=== PATIENT | female | born 1995 | race Two or more races ===

== ENCOUNTER 2025-04-11 10:14 | Emergency (ER) | payer MEDICAID, OTHER ==
[~2025-04-11] VITALS: Ht 165.1 cm; Wt 75.6 kg
[2025-04-11 10:16] VITALS: BP 115/70; TEMP 98.2
[2025-04-11 10:25] VITALS: PULSE 76
--- NOTE | 2025-04-11 10:27 | ECG ---
[facility] Test Date: 2025-04-11 Test Time: 10:25:24 Pat Name: SOPHIE TRIPATHI Department: ED Room: Gender: F Medical Bill Processor: DEREK : 1995 Requested By: SCOTT LI Order Number: [id number] Reading MD: Garrett Nicole Measurements Intervals Benge Rate: 76 P: 60 AL: 121 QRS: 98 QRSD: 93 T: 26 QT: 382 QTc: 430 Interpretive Statements Sinus rhythm Borderline right axis deviation Electronically Signed On 04-12-2025 17:02:42 PDT by Garrett Nicole Please click the below link to view image of tracing.
[2025-04-11] MEDS: SODIUM CHLORIDE 0.9% 1,000 ML IV ONE (10:30)
--- NOTE | 2025-04-11 10:42 | ED.PDOC ---
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 Pt states she is 7 weeks , , and states she woke up this AM with dizziness described as lightheadedness, burning chest pain, nausea and felt like she was going to "black out." Pt states she checked her 02 sat and states it was at 75% with a heart rate of 57. Patient notes her heart rate is usually fast, and rarely as low as the 50s. Patient states due to history of asthma, she decided to use her inhaler. Pt states she felt less short of breath afterwards and came to the ED for further evaluation. Pt states she was having burning chest pain episode earlier this AM but states it has since been alleviated prior to ED arrival. Pt now in the ED, otherwise denies any other symptoms. 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 Pt is followed by a shale planer operator at [place]. Pt otherwise denies any past symptoms with prior and denies any past complications. No current abdominal pain, vaginal bleeding or abnormal vaginal discharge. Pt has noted stable vitals with temp of 98.2 F, heart rate of 86, RR 16 and BP of 115/70 and 02 sat of 98% on room air. Pt states her first OB appt is next week. Pt denies any other symptoms at this time. Chief Complaint: Dizziness Time Seen by MD: 10:35 Reviewed Notes: Medications, Allergies Information Source: Patient Mode of Arrival: Ambulatory Past Medical History PAST MEDICAL HISTORY: Asthma Past Medical History (Other): Cor triatriatum Surgical History (Other): Cardiac ablation SHIP'S COOK History: Denies all SHIP'S COOK Hx Family History Family History: Reviewed,noncontributory to illness Social History Smoker: Non-Smoker Alcohol: Denies ETOH Use Drugs: Denies Drug Use Constitutional: denies: chills, diaphoresis, fatigue, fever, malaise, sweats, weakness, others EENTM: denies: blurred vision, double vision, ear bleeding, ear discharge, ear drainage, ear pain, ear ringing, eye pain, eye redness, hearing loss, mouth pain, mouth swelling, nasal discharge, nose bleeding, nose congestion, nose pain, photophobia, tearing, throat pain, throat swelling, voice changes, others Respiratory: denies: cough, hemoptysis, orthopnea, SOB at rest, shortness of breath, SOB with excertion, stridor, wheezing, others Cardiovascular: reports: chest pain; denies: dizzy spells, diaphoresis, Dyspnea on exertion, edema, irregular heart beat, left arm pain, lightheadedness, palpitations, PND, syncope, others Gastrointestinal: reports: nausea; denies: abdomen distended, abdominal pain, blood streaked bowels, constipated, diarrhea, dysphagia, difficulty swallowing, hematemesis, melena, poor appetite, poor fluid intake, rectal bleeding, rectal pain, vomiting, others Genitourinary: denies: abnormal vagina bleeding, burning, dyspareunia, dysuria, flank pain, frequency, hematuria, incontinence, pain, , vagina discharge, urgency, others Neurological: reports: dizziness; denies: fainting, headache, left sided numbness, left sided weakness, numbness, paresthesia, pre-existing deficit, right sided numbness, right sided weakness, seizure, speech problems, tingling, tremors, weakness, others Musculoskeletal: denies: back pain, gout, joint pain, joint swelling, muscle pain, muscle stiffness, neck pain, others Integumetry: denies: bruises, change in color, change in hair/nails, dryness, laceration, lesions, lumps, rash, wounds, others Allergic/Immunocompromised: denies: Difficulty Healing, Frequent Infections, Hives, Itching, others Hematologic/Lymphatic: denies: anemia, blood clots, easy bleeding, easy bruising, swollen glands, others Endocrine: denies: excessive hunger, excessive sweating, excessive thirst, excessive urination, flushing, intolerance to cold, intolerance to heat, unexplained weight gain, unexplained weight loss, others Psychiatric: denies: anxiety, bipolar disorder, depression, hopeless, panic disorder, schizophrenia, sleepless, suicidal, others All Other Systems: Reviewed and Negative Physical Exam General Appearance: No Apparent Distress, Obese HEENT: Other (Pupils and face symmetric. Moist mucous membranes.) Neck: Full Range of Motion, Normal Inspection Respiratory: Lungs Clear, No Accessory Muscle Use, No Respiratory Distress, Normal Breath Sounds Cardiovascular: No Edema, No JVD, Regular Rate/Rhythm Breast Exam: Deferred Gastrointestinal: Non Tender, Soft Genitalia: Deferred Pelvic: Deferred Rectal: Deferred Extremities: No calf tenderness, Normal inspection, Normal range of motion, Non-tender, No pedal edema Neurologic: Alert (Oriented x4), Normal Affect, Normal Mood, Other (Ambulatory) Cerebellar Function: NOT DONE Reflexes: NOT DONE Skin: Dry, Normal Color, Warm Lymphatic: NOT DONE EKG EKG : Comments Sinus rhythm, rate 76, normal intervals, borderline right axis deviation, normal QRS, nonspecific T change. Was a procedure done? Was a procedure done?: No Differential Diagnosis (SZ) General Weakness: Anemia, Dehydration, Electrolyte imbalance, Hypoglycemia, Hypotension, Pulmonary embolus, Vertigo: central, Vertigo: peripheral, Other (UTI, current , orthostasis, cardiac arrhythmia such as rapid or slow AFib, among others) X-Ray, Labs, Meds, VS Vital Signs Date Time Temp Pulse Resp B/P (MAP) Pulse Ox O2 Delivery O2 Flow Rate FiO2 04/11/25 10:48 20 99 Room Air* 0 21 04/11/25 10:25 76 04/11/25 10:16 98.2 86 16 115/70 98 98.2 Lab Test 04/11/25 11:24 04/11/25 10:36 04/11/25 10:25 Range/Units Troponin I High Sensitivity < 3 L < 3 L </=34 ng/L White Blood Count 8.2 4.4-10.8 10^3/uL Red Blood Count 5.12 4.0-5.20 10^6/uL Hemoglobin 14.2 12.2-16.2 g/dL Hematocrit 41.8 36.0-46.0 % Mean Corpuscular Volume 81.6 80.0-100.0 fL Mean Corpuscular Hemoglobin 27.7 L 28.0-32.0 pg Mean Corpuscular Hemoglobin Concent 33.9 32.0-36.0 g/dL Red Cell Distribution Width 18.3 H 11.8-14.3 % Platelet Count 306 140-450 10^3/uL Mean Platelet Volume 8.0 6.9-10.8 fL Neutrophils (%) (Auto) 74.1 37.0-80.0 % Lymphocytes (%) (Auto) 18.3 10.0-50.0 % Monocytes (%) (Auto) 6.6 0.0-12.0 % Eosinophils (%) (Auto) 0.9 0.0-7.0 % Basophils (%) (Auto) 0.1 0.0-2.0 % Neutrophils # (Auto) 6.1 1.6-8.6 10 ^3/uL Lymphocytes # (Auto) 1.5 0.4-5.4 10 ^3/uL Monocytes # (Auto) 0.5 0-1.3 10 ^3/uL Eosinophils # (Auto) 0.1 0-0.8 10 ^3/uL Basophils # (Auto) 0 0-0.2 10 ^3/uL Nucleated Red Blood Cells 0.0 % Prothrombin Time 10.5 9.3-11.8 sec Prothrombin Time INR 0.99 0.9-1.15 Activated Partial Thromboplast Time 27.7 24.5-34.5 SEC D-Dimer, Quantitative 0.20 0.0-0.49 mg/L FEU Sodium Level 135 L 136-145 mmol/L Potassium Level 4.1 3.5-5.1 mmol/L Chloride Level 102 98-107 mmol/L Carbon Dioxide Level 24 20-31 mmol/L Anion Gap 9 5-15 Blood Urea Nitrogen 8 L 9-23 mg/dL Creatinine 0.68 0.550-1.02 mg/dL Glomerular Filtration Rate Calc 122 >90 mL/min BUN/Creatinine Ratio 11.8 10.0-20.0 Serum Glucose 88 74-106 mg/dL Calcium Level 9.6 8.7-10.4 mg/dL B-Type Natriuretic Peptide 8.66 0-100 pg/mL Beta HCG, Quantitative 49875.9 H 1.5-4.2 mIU/mL POC Glucose 95 70-106 mg/dl Current Medications Medications (Trade) Dose Ordered Sig/[place] Route Start Time Stop Time Status Last Admin Sodium Chloride 1,000 ml @ 1,000 mls/hr Q1H ONCE IV 04/11/25 10:30 04/11/25 11:29 DC 04/11/25 10:30 Albuterol (Ventolin Medneb) 5 mg ONCE ONCE NEB 04/11/25 10:45 04/11/25 10:46 DC 04/11/25 10:47 Ipratropium [place] (Atrovent Medneb) 0.5 mg ONCE ONCE NEB 04/11/25 10:45 9/3/25 10:46 DC 04/11/25 10:48 Acetaminophen (Tylenol Tablet Or Capsule) 1,000 mg ONCE ONCE PO 04/11/25 10:45 04/11/25 10:46 DC 04/11/25 11:[address] [address] Ph: [phone] DIAGNOSTIC IMAGING Diagnostic Imaging Report : [id number] Signed PATIENT: SOPHIE TRIPATHI ACCT: [id number] UNIT: [id number] : 1995 LOC: ER ROOM / BED: / AGE / SEX: 29 / F ADM STATUS: REG ER SERVICE 1023 ORDERING PHYSICIAN: SCOTT THOMPSON MD PROCEDURE(s): CXRP - CHEST PORTABLE REASON: dizzy, 7 wk preg ORDER NUMBER(s): [id number], ACCESSION NUMBER(s): [id number] EXAM: XY CHEST PORTABLE Indication: pain Technique: Single frontal view of the chest was obtained Comparison: None FINDINGS: Lines and Tubes: None Lungs: No focal consolidation. Pleura: No effusion. No pneumothorax. Cardiomediastinal contours: Unremarkable Bones: No acute osseous abnormality. IMPRESSION: No acute cardiopulmonary disease. 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 Vitals unremarkable here Exam unremarkable Rhythm strip independently interpreted by me: Sinus rhythm, rate 76, no ectopy. Chest x-ray unremarkable CBC unremarkable, basic metabolic panel remarkable for sodium 135, BNP and 2 serial troponins negative, coag panel normal and D-dimer negative, hCG 64105.9, UA pending Patient treated with the following in the ED: 1 L 0.9 normal saline IV bolus, albuterol 5 mg/Atrovent 0.5 mg nebulized, Tylenol 1 g p.o. Prior to my ability to re-evaluate the patient, she decided to leave against medical advice. I was not advised until after the patient had left the ED. Time of 1ST Reevaluation: 12:03 Reevaluation 1ST: Improved Patient Education/Counseling: Treatment Family Education/Counseling: No Family Present Departure 1 Departure Time of Disposition: 12:03 Impression: Primary Impression: Pre-syncope Additional Impressions: Chest pain Qualified Codes: R07.9 - Chest pain, unspecified Shortness of breath Disposition: LEFT AGAINST MEDICAL ADVICE Condition: Fair Critical Care Note Critical Care Time?: No Stability Stability form required: No Heart Score Heart Score: Heart Score Response (Comments) Value History Slightly Suspicious 0 EKG Normal 0 Age <45 0 Risk Factors 1 or 2 risk factors 1 Troponin Normal limit 0 Total 1 I personally scribed for SCOTT THOMPSON MD ([email or web address]) on 04/11/25 at 10:42. Electronically submitted by Brianne Singh ([email or web address]). I personally scribed for SCOTT THOMPSON MD ([email or web address]) on 04/11/25 at 11:27. Electronically submitted by Brianne Singh ([facility] [place]). SCOTT THOMPSON MD Apr 11, 2025 10:42
[2025-04-11] MEDS: ALBUTEROL SULF 2.5 MG/0.5ML(0.5%) NEB SOLN NEB ONE (10:47)
[2025-04-11 10:48] VITALS: RESP 20; O2SAT 99
[2025-04-11] MEDS: IPRATROPIUM BROM 0.5 MG/2.5ML INH SOL NEB ONE (10:48)
[2025-04-11 10:57] LABS: Hematocrit 41.8 % (36.0-46.0); Hemoglobin 14.2 g/dL (12.2-16.2); Mean Corpuscular Hemoglobin 27.7 pg (28.0-32.0); Mean Corpuscular Volume 81.6 fL (80.0-100.0); Nucleated Red Blood Cells % 0.0 %
[2025-04-11 11:03] LABS: Chloride 102 mmol/L (98-107); Potassium 4.1 mmol/L (3.5-5.1)
[2025-04-11 11:04] LABS: Anion Gap 9 (5-15); Calcium 9.6 mg/dL (8.7-10.4); Carbon Dioxide 24 mmol/L (20-31); Sodium 135 mmol/L (136-145)
[2025-04-11 11:08] LABS: INR 0.99 (0.9-1.15); Partial Thromboplastin Time 27.7 SEC (24.5-34.5); Prothrombin Time 10.5 sec (9.3-11.8)
[2025-04-11 11:09] LABS: BUN/Creatinine Ratio 11.8 (10.0-20.0); Blood Urea Nitrogen 8 mg/dL (9-23); Glucose 88 mg/dL (74-106)
--- NOTE | 2025-04-11 11:09 | DVH ---
EXAM: XY CHEST PORTABLE Indication: pain Technique: Single frontal view of the chest was obtained Comparison: None FINDINGS: Lines and Tubes: None Lungs: No focal consolidation. Pleura: No effusion. No pneumothorax. Cardiomediastinal contours: Unremarkable Bones: No acute osseous abnormality. IMPRESSION: No acute cardiopulmonary disease.
[2025-04-11] MEDS: ACETAMINOPHEN 500 MG TAB or CAP PO ONE (11:22)
== END 2025-04-11 14:12 | disposition left against medical advice (07) ==
LOC: ER 10:14
DX: O20.0 Threatened abortion (principal); O99.511 Diseases of the respiratory system complicating pregnancy, first trimester; J45.909 Unspecified asthma, uncomplicated; Z3A.01 Less than 8 weeks gestation of pregnancy; Z98.890 Other specified postprocedural states
CPT/HCPCS: 36415; 71045; 80048; 82947; 83880; 84484; 84702; 85025; 85379; 85610; 85730; 93005; 94640; 96360; 99285; J7030; 82962